=== PATIENT | female | born 1955 | race Two or more races ===

== ENCOUNTER 2021-08-13 11:48 | Emergency (ER) | payer SELFPAY ==
[~2021-08-13] VITALS: Ht 152.4 cm; Wt 80.0 kg
[2021-08-13] MEDS ORDERED: ACETAMINOPHEN 325MG TABLET PO ONE (12:15)
[2021-08-13 13:39] VITALS: BP 146/95
[2021-08-13] MEDS ORDERED: IBUP-2030 MT (14:38)
== END 2021-08-13 15:32 | disposition home or self-care (01) ==
LOC: ER 11:48
DX: R51.9 Headache, unspecified (principal); M54.5 Low back pain; R42 Dizziness and giddiness; E78.00 Pure hypercholesterolemia, unspecified; Z88.6 Allergy status to analgesic agent
CPT/HCPCS: 72100; 73560; 99285